=== PATIENT | female | born 2000 | race Caucasian/White ===

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

== ENCOUNTER 2018-04-25 17:53 | Emergency (ER) | payer OTHER, BC ==
[2018-04-25 19:20] LABS: BASO % 0.4 % (0.0-1.0); EOS # 0.1 10^3/uL (0.0-0.50); EOS % 1.3 % (0.0-3.0); HEMATOCRIT 39.7 % (36.0-47.0); HEMOGLOBIN 13.4 g/dl (12.0-15.5); IMMATURE GRANULOCYTE % 0.2 % (0-3.0); LYMPH # 2.6 10^3/uL (1.5-6.5); LYMPH % 28.6 % (24.0-44.0); MEAN CORPUSCULAR HEMOGLOBIN 30.4 pg (27.0-33.0); MEAN CORPUSCULAR HGB CONC 33.8 g/dl (32.0-36.5); MONO # 0.6 10^3/uL (0.0-0.8); MONO % 6.7 % (0.0-5.0); NEUTROPHILS # 5.6 10^3/uL (1.8-7.7); NEUTROPHILS % 62.8 % (36.0-66.0); PLATELET COUNT, AUTOMATED 272 10^3/uL (150-450); RED BLOOD COUNT 4.41 10^6/uL (4.00-5.40); RED CELL DISTRIBUTION WIDTH 12.1 % (11.5-14.5); WHITE BLOOD COUNT 8.9 10^3/uL (4.0-10.0)
[2018-04-25 19:35] LABS: ALBUMIN 4.6 GM/DL (3.2-5.2); ALBUMIN/GLOBULIN RATIO 1.28 (1.00-1.93); ALKALINE PHOSPHATASE 73 U/L (45-117); ALT/SGPT 19 U/L (12-78); ANION GAP 6 MEQ/L (8-16); AST/SGOT 14 U/L (7-37); BILIRUBIN,TOTAL 0.4 MG/DL (0.2-1.0); BLOOD UREA NITROGEN 14 MG/DL (7-18); CALCIUM LEVEL 9.5 MG/DL (8.5-10.1); CARBON DIOXIDE LEVEL 29 MEQ/L (21-32); CHLORIDE LEVEL 105 MEQ/L (98-107); CREATININE FOR GFR 0.74 MG/DL (0.55-1.30); GLUCOSE, FASTING 84 MG/DL (70-100); SODIUM LEVEL 140 MEQ/L (136-145); TOTAL PROTEIN 8.2 GM/DL (6.4-8.2)
[2018-04-25 20:37] LABS: HIVEXPOSED0 NEGATIVE (NEGATIVE)
[2018-04-25 20:39] LABS: CONTROL LINE INT CTR LINE PRESENT; HIV EXPOSED PT 1 NEGATIVE (NEGATIVE)
[2018-04-25 21:51] LABS: CONTROL LINE HCG INT CTR LINE PRESENT; HCG, SERUM QUALITATIVE NEGATIVE (NEGATIVE)
[2018-04-26 12:17] LABS: HEPATITIS B SURFACE ANTIGEN NEGATIVE (NEGATIVE)
[2018-04-26 12:46] LABS: HEPATITIS C VIRUS ABY INDEX 0.1 INDEX (<0.8)
[2018-04-26 13:17] LABS: HEPATITIS B SURFACE ANTIBODY NEGATIVE (POSITIVE)
== END 2018-04-25 20:15 | disposition home or self-care (01) ==
LOC: M ED 17:53
DX: Z77.21 Contact with and (suspected) exposure to potentially hazardous body fluids (principal); X58.XXXA Exposure to other specified factors, initial encounter; Y92.9 Unspecified place or not applicable; Y93.F9 Activity, other caregiving; Y99.0 Civilian activity done for income or pay; Z79.3 Long term (current) use of hormonal contraceptives; Z91.02 Food additives allergy status
CPT/HCPCS: 80053

== ENCOUNTER 2018-06-02 06:36 | Emergency (ER) | payer OTHER, BC ==
[2018-06-02] MEDS ORDERED: diphenhydrAMINE INJ 50MG/ML VIAL (J1200) As Ordered (06:42)
[2018-06-02] MEDS ORDERED: methylPREDNISolone INJ 125 MG/2 ML VIAL (J2930) As Ordered (06:43)
[2018-06-02] MEDS: diphenhydrAMINE INJ 50MG/ML VIAL (J1200) IV (06:58)
[2018-06-02] MEDS: methylPREDNISolone INJ 40 MG/1 ML VIAL (J2920) IV (07:06)
[2018-06-02] MEDS: FAMOTIDINE INJ 20MG/2ML VIAL (S0028) IVP (07:18)
== END 2018-06-02 08:35 | disposition home or self-care (01) ==
LOC: M ED 06:36
DX: R22.1 Localized swelling, mass and lump, neck (principal); R22.0 Localized swelling, mass and lump, head; T78.40XA Allergy, unspecified, initial encounter; Z91.02 Food additives allergy status
CPT/HCPCS: J1200

== ENCOUNTER 2018-07-05 09:27 | Emergency (ER) | payer OTHER ==
[2018-07-05 09:56] LABS: BASO % 0.6 % (0.0-1.0); EOS % 0.6 % (0.0-3.0); HEMATOCRIT 41.3 % (36.0-47.0); IMMATURE GRANULOCYTE % 0.1 % (0-3.0); LYMPH % 29.6 % (24.0-44.0); MEAN CORPUSCULAR HEMOGLOBIN 30.3 pg (27.0-33.0); MEAN CORPUSCULAR HGB CONC 33.9 g/dl (32.0-36.5); MEAN CORPUSCULAR VOLUME 89.4 fl (80.0-96.0); MONO # 0.6 10^3/uL (0.0-0.8); MONO % 8.4 % (0.0-5.0); NEUTROPHILS # 4.1 10^3/uL (1.8-7.7); NEUTROPHILS % 60.7 % (36.0-66.0); PLATELET COUNT, AUTOMATED 306 10^3/uL (150-450); RED BLOOD COUNT 4.62 10^6/uL (4.00-5.40); WHITE BLOOD COUNT 6.7 10^3/uL (4.0-10.0)
[2018-07-05 10:26] LABS: CONTROL LINE HCG INT CTR LINE PRESENT; HCG, SERUM QUALITATIVE NEGATIVE (NEGATIVE)
[2018-07-05 10:34] LABS: ALBUMIN 4.4 GM/DL (3.2-5.2); ALBUMIN/GLOBULIN RATIO 1.19 (1.00-1.93); ALKALINE PHOSPHATASE 62 U/L (45-117); ALT/SGPT 21 U/L (12-78); ANION GAP 9 MEQ/L (8-16); AST/SGOT 16 U/L (7-37); BILIRUBIN,TOTAL 0.5 MG/DL (0.2-1.0); BLOOD UREA NITROGEN 12 MG/DL (7-18); CALCIUM LEVEL 9.9 MG/DL (8.5-10.1); CARBON DIOXIDE LEVEL 26 MEQ/L (21-32); CHLORIDE LEVEL 105 MEQ/L (98-107); CREATININE FOR GFR 0.79 MG/DL (0.55-1.30); GLUCOSE, FASTING 86 MG/DL (70-100); POTASSIUM SERUM 3.7 MEQ/L (3.5-5.1); SODIUM LEVEL 140 MEQ/L (136-145); TOTAL PROTEIN 8.1 GM/DL (6.4-8.2)
[2018-07-05 10:47] LABS: HEPATITIS B SURFACE ANTIBODY POSITIVE (POSITIVE)
[2018-07-05 10:57] LABS: HEPATITIS B SURFACE ANTIGEN NEGATIVE (NEGATIVE)
[2018-07-05 11:26] LABS: HIV SCREEN CENTAUR EXPOSED NEGATIVE (NEGATIVE)
[2018-07-05 11:26] LABS: HEPATITIS C VIRUS ABY INDEX 0.1 INDEX (<0.8)
== END 2018-07-05 11:50 | disposition home or self-care (01) ==
LOC: M ED 09:27
DX: Z77.21 Contact with and (suspected) exposure to potentially hazardous body fluids (principal); W46.1XXA Contact with contaminated hypodermic needle, initial encounter; Y92.59 Other trade areas as the place of occurrence of the external cause; Y99.0 Civilian activity done for income or pay
CPT/HCPCS: 80053

== ENCOUNTER 2019-05-13 07:50 | Emergency (ER) | payer OTHER ==
[~2019-05-13] VITALS: Ht 167.6 cm; Wt 84.5 kg
[~2019-05-13 07:50] MED LIST changes: +BENA25CA4 PO; +NEXP1IMP SC; +PEPC1TAB5 PO; +PRED20TA PO; +TRINTAB; -TRINTAB3; +ZOFR4TAB14 PO
[2019-05-13] MEDS ORDERED: PREN1CHW PO (07:55)
[2019-05-13] MEDS ORDERED: ONDANSETRON 4 MG ORAL DISINTEGRATING TAB (Q0162 PER 1MG) PO ONE (08:15)
[2019-05-13 08:31] LABS: HEMATOCRIT 41.5 % (36.0-47.0); HEMOGLOBIN 14.1 g/dl (12.0-15.5); MEAN CORPUSCULAR HEMOGLOBIN 30.5 pg (27.0-33.0); MEAN CORPUSCULAR VOLUME 89.6 fl (80.0-96.0); PLATELET COUNT, AUTOMATED 271 10^3/uL (150-450); RED BLOOD COUNT 4.63 10^6/uL (4.00-5.40); WHITE BLOOD COUNT 7.1 10^3/uL (4.0-10.0)
[2019-05-13 08:51] LABS: BLOOD UREA NITROGEN 15 MG/DL (7-18); CALCIUM LEVEL 9.2 MG/DL (8.5-10.1); CARBON DIOXIDE LEVEL 24 MEQ/L (21-32); CHLORIDE LEVEL 107 MEQ/L (98-107); CREATININE FOR GFR 0.81 MG/DL (0.55-1.30); GLUCOSE, FASTING 103 MG/DL (70-100); POTASSIUM SERUM 4.2 MEQ/L (3.5-5.1); SODIUM LEVEL 138 MEQ/L (136-145)
[2019-05-13 10:19] VITALS: BP 113/60
--- NOTE | 2019-05-14 07:52 | REP ---
Pelvic ultrasound including transabdominal, endovaginal and Doppler ultrasound assessment for vaginal bleeding and for cramping: The uterus is anteverted and anteflexed and normal size measuring 7.6 by 2.7 x 3.9 cm. The endometrium is not thickened measuring 4.8 mm. The right ovary is normal size measuring 2.1 x 1.6 x 2.2 cm. There is no dominant right ovarian mass or cyst. The left ovary is normal size measuring 2.5 x 1.8 x 1.4 cm. There is a complex left ovarian follicle measuring 1.3 x 1.5 x 1.1 cm, likely hemorrhagic follicle. T There is vascular flow in both ovaries with the Doppler resistive index of the parenchymal arteries on the right measuring 0.53 and on the left 0.53. There is no pelvic free fluid. Impression: Left ovarian hemorrhagic follicle measuring up to 1.5 cm. No ovarian torsion. The uterus is anteverted and anteflexed. Electronically Signed by Arie Cervantes MD 05/13/2019 10:30 A
== END 2019-05-13 11:29 | disposition home or self-care (01) ==
LOC: M ED 07:50
DX: N83.02 Follicular cyst of left ovary (principal); N85.4 Malposition of uterus; N93.9 Abnormal uterine and vaginal bleeding, unspecified; Z91.048 Other nonmedicinal substance allergy status
CPT/HCPCS: 76830; 76856; 80048; 81001; 84702; 85027; 86850; 86900; 86901; 93976; 99284; Q0162

== ENCOUNTER 2019-05-17 22:42 | Emergency (ER) | payer OTHER ==
[~2019-05-17] VITALS: Ht 167.6 cm; Wt 87.1 kg
[2019-05-17 22:42] VITALS: BP 130/76
[~2019-05-17 22:42] MED LIST changes: +PREN1CHW PO
[2019-05-17] MEDS ORDERED: AUGMENTIN 875 MG TAB PO ONE (23:15)
[2019-05-17] MEDS ORDERED: AUGM875T28 PO (23:25)
== END 2019-05-18 00:13 | disposition home or self-care (01) ==
LOC: M ED 22:42
DX: S60.571A Other superficial bite of hand of right hand, initial encounter (principal); W55.01XA Bitten by cat, initial encounter; Y92.89 Other specified places as the place of occurrence of the external cause; E28.2 Polycystic ovarian syndrome; Z91.018 Allergy to other foods

== ENCOUNTER 2019-09-16 22:03 | Emergency (ER) | payer OTHER ==
[~2019-09-16] VITALS: Ht 167.6 cm; Wt 84.1 kg
[~2019-09-16 22:03] MED LIST changes: +AUGM875T28 PO
[2019-09-16 22:04] VITALS: BP 135/75
[2019-09-16] MEDS ORDERED: AMOX500T PO (22:25)
== END 2019-09-16 22:34 | disposition home or self-care (01) ==
LOC: M ED 22:03
DX: O99.89 Other specified diseases and conditions complicating pregnancy, childbirth and the puerperium (principal); J02.0 Streptococcal pharyngitis; Z3A.10 10 weeks gestation of pregnancy; Z79.899 Other long term (current) drug therapy; Z91.89 Other specified personal risk factors, not elsewhere classified

== ENCOUNTER → 2019-09-21 | Outpatient (CLI) | payer OTHER ==
[~2019-09-21] MED LIST changes: +AMOX500T PO
[2019-09-21 15:18] LABS: BASO % 0.4 % (0.0-1.0); EOS # 0.1 10^3/uL (0.0-0.5); EOS % 0.6 % (0.0-3.0); HEMATOCRIT 39.1 % (36.0-47.0); HEMOGLOBIN 12.9 g/dl (12.0-15.5); LYMPH # 2.2 10^3/uL (1.5-5.0); LYMPH % 22.9 % (24.0-44.0); MEAN CORPUSCULAR HEMOGLOBIN 30.2 pg (27.0-33.0); MEAN CORPUSCULAR VOLUME 91.6 fl (80.0-96.0); MONO # 0.9 10^3/uL (0.0-0.8); MONO % 9.1 % (0.0-5.0); NEUTROPHILS # 6.4 10^3/uL (1.5-8.5); NEUTROPHILS % 66.4 % (36.0-66.0); PLATELET COUNT, AUTOMATED 277 10^3/uL (150-450); RED BLOOD COUNT 4.27 10^6/uL (4.00-5.40); WHITE BLOOD COUNT 9.6 10^3/uL (4.0-10.0)
[2019-09-21 16:49] LABS: CHLAMYDIA DNA AMPLIFICATION NEGATIVE (NEGATIVE); GC DNA AMPLIFICATION NEGATIVE (NEGATIVE)
[2019-09-21 21:44] LABS: HIV 1&2 SCREEN CENTAUR NEGATIVE (NEGATIVE); RUBELLA IgG QUALITATIVE IMMUNE (IMMUNE)
[2019-09-24 13:09] LABS: HEPATITIS C VIRUS ABY INDEX 0.1 INDEX (<0.8)
== END ==
LOC: M PLALAB 09:15
PROVIDERS: ATTEND Obstetrics & Gynecology
DX: Z34.81 Encounter for supervision of other normal pregnancy, first trimester (principal); Z36.89 Encounter for other specified antenatal screening

== ENCOUNTER → 2019-11-13 | Outpatient (CLI) | payer OTHER ==
--- NOTE | 2019-11-15 02:12 | REP ---
Clinical: Anatomical evaluation. Comparison: None . Findings: Examination demonstrates a single live intrauterine in cephalic presentation. motion is identified by technologist. Placenta is noted anterior and grade I without evidence for placenta previa or abruption. Amniotic fluid volume is normal. Cervix measures 3.1 cm in length and appears closed. No evidence for nuchal cord. 1.9 cm maternal left ovarian / para ovarian cyst noted. Gestational age by current measurements 18 weeks 3 days with STACEY 04/12/2020 . FHR equals 155 beats per minute. BPD 4.2 cm 18 weeks 5 days HC 15.2 cm 18 weeks 2 days AC 12.4 cm 18 weeks 0 days FL 2.9 cm 18 weeks 6 days HL 2.7 cm 18 weeks 4 days HC/AC ratio 1.23 Estimated weight 240 grams ( 48th percentile). Anatomical assessment demonstrates normal structures including cranium, choroid plexus, lungs, four-chamber heart/ left ventricular outflow tract, diaphragm, stomach, cord insertion/three-vessel cord, kidneys/bladder, spine, and extremities. Limited evaluation of the cavum, posterior fossa, facial features, and right cardiac ventricular outflow tract noted. Impression: 1. Single live intrauterine in cephalic presentation demonstrating appropriate estimated weight. 2. Anatomical limitations as noted above may warrant followup. No gross abnormality identified. 3. 1.9 cm maternal left ovarian cyst.
== END ==
LOC: M WHC 08:01
PROVIDERS: ATTEND Obstetrics & Gynecology
DX: Z34.82 Encounter for supervision of other normal pregnancy, second trimester (principal); Z36.89 Encounter for other specified antenatal screening; Z3A.18 18 weeks gestation of pregnancy

== ENCOUNTER → 2019-11-16 | Outpatient (REF) | payer OTHER ==
[2019-11-16 14:42] LABS: AMORPHOUS SEDIMENT LARGE (NEGATIVE); APPEARANCE, URINE TURBID (CLEAR); BACTERIA, URINE AUTO NEGATIVE (NEGATIVE); BILIRUBIN, URINE AUTO NEGATIVE (NEGATIVE); BLOOD, URINE BLOOD NEGATIVE (NEGATIVE); COLOR, URINE YELLOW (YELLOW); GLUCOSE, URINE (UA) AUTO 1+ mg/dL (NEGATIVE); KETONE, URINE AUTO TRACE mg/dL (NEGATIVE); LEUKOCYTE ESTERASE, URINE AUTO NEGATIVE (NEGATIVE); NITRITE, URINE AUTO NEGATIVE (NEGATIVE); PROTEIN, URINE AUTO NEGATIVE (NEGATIVE); RBC, URINE AUTO 2 /HPF (0-3); SPECIFIC GRAVITY URINE AUTO 1.027 (1.002-1.035); SQUAMOUS EPITHELIAL CELL UR AU 2 /HPF (0-6); UROBILINOGEN, URINE AUTO 0.2 mg/dL (0.0-2.0); WBC, URINE AUTO 5 /HPF (0-3)
== END ==
LOC: M LAB REF 13:01
PROVIDERS: ATTEND Advanced Practice Midwife
DX: Z34.02 Encounter for supervision of normal first pregnancy, second trimester (principal)

== ENCOUNTER → 2019-11-29 | Outpatient (CLI) | payer OTHER ==
--- NOTE | 2019-11-29 12:07 | REP ---
Clinical: Anatomical evaluation. Comparison: 11/13/2019 . Findings: Examination demonstrates a single live intrauterine in cephalic presentation. motion is identified by technologist. Placenta is noted anterior and grade zero without evidence for placenta previa or abruption. Amniotic fluid volume is normal. Cervix measures 3.8 cm in length and appears closed. No evidence for nuchal cord. Gestational age by LMP 20 weeks 5 days with STACEY 04/12/2020 . Gestational age by current measurements 20 weeks 1 day with STACEY 04/17/2020 . FHR equals 142 beats per minute. Estimated weight 338 grams ( 31st percentile). Anatomical assessment demonstrates normal structures including cavum, cerebellum/posterior fossa, right cardiac ventricular outflow tract. Impression: Single live intrauterine in cephalic presentation demonstrating appropriate interval growth. Continued limited evaluation of the facial features due to motion / positioning. Cavum, posterior fossa and right cardiac ventricular outflow tract are identified and normal.
== END ==
LOC: M WHC 10:33
PROVIDERS: ATTEND Advanced Practice Midwife
DX: Z34.02 Encounter for supervision of normal first pregnancy, second trimester (principal); Z36.2 Encounter for other antenatal screening follow-up; Z3A.20 20 weeks gestation of pregnancy

== ENCOUNTER 2019-12-21 18:04 | Outpatient (CLI) | payer OTHER ==
[~2019-12-21] VITALS: Ht 167.6 cm; Wt 92.0 kg
[2019-12-21 18:22] VITALS: BP 115/66
[2019-12-21 19:08] LABS: APPEARANCE, URINE CLEAR (CLEAR); BACTERIA, URINE AUTO NEGATIVE (NEGATIVE); BILIRUBIN, URINE AUTO NEGATIVE (NEGATIVE); BLOOD, URINE BLOOD NEGATIVE (NEGATIVE); COLOR, URINE STRAW (YELLOW); GLUCOSE, URINE (UA) AUTO NEGATIVE (NEGATIVE); KETONE, URINE AUTO NEGATIVE (NEGATIVE); LEUKOCYTE ESTERASE, URINE AUTO NEGATIVE (NEGATIVE); NITRITE, URINE AUTO NEGATIVE (NEGATIVE); PROTEIN, URINE AUTO NEGATIVE (NEGATIVE); RBC, URINE AUTO 0 /HPF (0-3); SPECIFIC GRAVITY URINE AUTO 1.004 (1.002-1.035); SQUAMOUS EPITHELIAL CELL UR AU 0 /HPF (0-6); UROBILINOGEN, URINE AUTO 0.2 mg/dL (0.0-2.0); WBC, URINE AUTO 1 /HPF (0-3)
--- NOTE | 2019-12-21 19:14 | IPNPDOC ---
Text Note Date of Service The patient was seen on 12/21/19. NOTE Triage Subjective: Patient is a 19-year-old, who presents to labor and delivery c/o low abdominal fullness and intermittent shooting pains to pelvis since this morning. Reports increased vaginal discharge. Reports positive movement. Denies vaginal bleeding. Reports [place] ribeiro contractions. Objective: Alert and oriented x3. Abdomen soft and non-tender to palpation. Bladder tender to palpation, urine collected and sent. Cervix long/thick/closed, normal white discharge noted per sterile speculum exam. FFN collected. PH 4.5, wet prep negative for overgrowth of yeast, no clue cells. Negative whiff test. GC/chlamydia/trich collected. FHR 148 per doppler. No contractions noted on tocometer. TVUS showed cervical length of 4.5cm without funneling of inner os. Assessment: SIUP @ 23.5wk gestation. [place] ribeiro contractions. Plan: Urinalysis attached, culture pending. FFN positive. GC/Chlamydia/trich negative. Discharged to home. Encouraged less acidic foods. Reviewed normal changes. Reviewed access to care, movement patterns, danger signs. Keep next OB appointment on January 15. Dr. Rea aware of patient status and agrees with plan. VS,Tobiasbone, I+O VS, Tobiasbone, I+O Vital Signs Date Time Temp Pulse Resp B/P (MAP) Pulse Ox O2 Delivery O2 Flow Rate FiO2 12/21/19 18:22 97.0 75 16 115/66 (82) Item Value Date Time Urine Color STRAW 12/21/191858 Urine Appearance CLEAR 12/21/191858 Urine pH 6.0 UNITS 12/21/191858 Urine Specific [place] 1.004 12/21/191858 Urine Protein NEGATIVE mg/dL 12/21/191858 Urine Glucose (Auto)(UA) NEGATIVE mg/dL 12/21/191858 Urine Ketones (Auto) NEGATIVE mg/dL 12/21/191858 Urine Blood NEGATIVE 12/21/191858 Urine Nitrite NEGATIVE 12/21/191858 Urine Bilirubin NEGATIVE 12/21/191858 Urine Urobilinogen 0.2 mg/dL 12/21/191858 Urine Leukocyte Esterase (Auto) NEGATIVE 12/21/191858 Urine WBC (Auto) 1 /HPF 12/21/191858 Urine RBC (Auto) 0 /HPF 12/21/191858 Urine Hyaline Casts (Auto) 0 /LPF 12/21/191858 Urine Bacteria (Auto) NEGATIVE 12/21/191858 Urine Squamous Epithelial Cells 0 /HPF 12/21/191858 Item Value Date Time Chlamydia trachomatis DNA (ARIE) NEGATIVE 12/21/191899 Neisseria gonorrhoeae DNA (ARIE) NEGATIVE 12/21/191899 Trichomonas vaginalis (PCR) NOT DETECTED 12/21/191899 Jennifer Ernandez Dec 21, 2019 19:14
[2019-12-21 21:29] LABS: CHLAMYDIA DNA AMPLIFICATION NEGATIVE (NEGATIVE); GC DNA AMPLIFICATION NEGATIVE (NEGATIVE)
--- NOTE | 2019-12-21 21:55 | REPVR ---
PROCEDURE INFORMATION: Exam: US , Limited Exam date and time: 12/21/2019 8:59 PM Age: 19 years old Clinical indication: Other: Lower pelvic pain, +ffn; Gestational age or lmp: 24w 0d; ; Additional info: + ffn, cervical length TECHNIQUE: Imaging protocol: Real-time ultrasound of the maternal uterus with image documentation. Exam focused on the clinical indication. COMPARISON: US OBS FOLLOW UP OR REPEAT 11/29/2019 10:41 AM FINDINGS: GESTATION: Gestation: Single intrauterine fetus. The stomach and bladder are normal. Heart rate: heartbeat of 133 bpm. Presentation: Breech presentation. Placenta: Anterior placenta. MATERNAL: Cervix: Closed cervix measuring 4.5 cm transvaginally. No beaking of the internal os. IMPRESSION: 1. Single live intrauterine fetus in breech presentation. 2. Closed cervix measuring 4.5 cm transvaginally with no beaking of the internal os. Electronically signed by: Mnig Jha On 12/21/2019 21:55:12 PM
== END 2019-12-21 21:35 | disposition home or self-care (01) ==
LOC: M LDO 18:04
PROVIDERS: ATTEND Advanced Practice Midwife
DX: O26.892 Other specified pregnancy related conditions, second trimester (principal); R10.2 Pelvic and perineal pain; N89.8 Other specified noninflammatory disorders of vagina; O47.02 False labor before 37 completed weeks of gestation, second trimester; Z3A.23 23 weeks gestation of pregnancy
CPT/HCPCS: 76815; 76817; 81001; 82731; 87086; 87661; G0378; G0463

== ENCOUNTER 2019-12-27 20:27 | Outpatient (CLI) | payer OTHER ==
[~2019-12-27] VITALS: Ht 167.6 cm; Wt 93.7 kg
[2019-12-27 20:50] VITALS: BP 103/56
[2019-12-27] MEDS ORDERED: LACTATED RINGER'S 1000 ML IV STA (21:05)
[2019-12-27] MEDS ORDERED: ONDANSETRON 4MG/2ML VIAL (J2405) IV ONE (21:15)
[2019-12-27 21:47] LABS: HEMATOCRIT 35.7 % (36.0-47.0); MEAN CORPUSCULAR HEMOGLOBIN 30.5 pg (27.0-33.0); MEAN CORPUSCULAR HGB CONC 33.6 g/dl (32.0-36.5); MEAN CORPUSCULAR VOLUME 90.8 fl (80.0-96.0); PLATELET COUNT, AUTOMATED 221 10^3/uL (150-450); RED BLOOD COUNT 3.93 10^6/uL (4.00-5.40); WHITE BLOOD COUNT 10.1 10^3/uL (4.0-10.0)
[2019-12-27 21:55] LABS: APPEARANCE, URINE CLOUDY (CLEAR); COLOR, URINE YELLOW (YELLOW); PROTEIN, URINE AUTO NEGATIVE (NEGATIVE); SPECIFIC GRAVITY URINE AUTO 1.014 (1.002-1.035)
[2019-12-27 21:56] LABS: BACTERIA, URINE AUTO NEG (NEGATIVE); BILIRUBIN, URINE AUTO NEGATIVE (NEGATIVE); BLOOD, URINE BLOOD NEGATIVE (NEGATIVE); GLUCOSE, URINE (UA) AUTO NEGATIVE (NEGATIVE); KETONE, URINE AUTO NEGATIVE (NEGATIVE); LEUKOCYTE ESTERASE, URINE AUTO NEGATIVE (NEGATIVE); MUCUS, URINE SMALL (NEGATIVE); NITRITE, URINE AUTO NEGATIVE (NEGATIVE); RBC, URINE AUTO 0 /HPF (0-3); UROBILINOGEN, URINE AUTO 0.2 mg/dL (0.0-2.0); WBC, URINE AUTO 0 /HPF (0-3)
[2019-12-27 21:57] LABS: AMORPHOUS SEDIMENT SMALL (NEGATIVE)
[2019-12-27 22:10] LABS: ALBUMIN 2.9 GM/DL (3.2-5.2); ALT/SGPT 16 U/L (12-78); AMYLASE 32 U/L (25-115); BILIRUBIN,TOTAL 0.2 MG/DL (0.2-1.0); BLOOD UREA NITROGEN 8 MG/DL (7-18); CALCIUM LEVEL 8.7 MG/DL (8.5-10.1); CARBON DIOXIDE LEVEL 27 MEQ/L (21-32); CHLORIDE LEVEL 104 MEQ/L (98-107); CREATININE FOR GFR 0.63 MG/DL (0.55-1.30); GLOMERULAR FILTRATION RATE > 60.0 (>60); GLUCOSE, FASTING 83 MG/DL (70-100); LIPASE 90 U/L (73-393); POTASSIUM SERUM 3.5 MEQ/L (3.5-5.1); SODIUM LEVEL 138 MEQ/L (136-145); TOTAL PROTEIN 6.4 GM/DL (6.4-8.2)
== END 2019-12-27 23:00 | disposition home or self-care (01) ==
LOC: M LDO 20:27
PROVIDERS: ATTEND Obstetrics & Gynecology
DX: O28.1 Abnormal biochemical finding on antenatal screening of mother (principal); A08.4 Viral intestinal infection, unspecified; Z3A.24 24 weeks gestation of pregnancy; O99.612 Diseases of the digestive system complicating pregnancy, second trimester; K52.9 Noninfective gastroenteritis and colitis, unspecified; Z91.048 Other nonmedicinal substance allergy status
CPT/HCPCS: 80053; 81001; 82150; 83690; 85027; 87086; 96374; G0378; G0463; J2405

== ENCOUNTER 2019-12-30 14:11 | Outpatient (CLI) | payer OTHER ==
[~2019-12-30] VITALS: Ht 167.6 cm; Wt 92.5 kg
[2019-12-30 14:35] VITALS: BP 109/53
[2019-12-30 15:56] VITALS: BP 100/54
[2019-12-30 16:13] LABS: HEMATOCRIT 35.8 % (36.0-47.0); HEMOGLOBIN 11.9 g/dl (12.0-15.5); MEAN CORPUSCULAR HEMOGLOBIN 30.7 pg (27.0-33.0); MEAN CORPUSCULAR HGB CONC 33.2 g/dl (32.0-36.5); MEAN CORPUSCULAR VOLUME 92.3 fl (80.0-96.0); PLATELET COUNT, AUTOMATED 224 10^3/uL (150-450); RED BLOOD COUNT 3.88 10^6/uL (4.00-5.40); WHITE BLOOD COUNT 9.4 10^3/uL (4.0-10.0)
[2019-12-30 16:39] VITALS: BP 104/54
[2019-12-30 18:37] VITALS: BP 129/69
--- NOTE | 2019-12-31 08:34 | REP ---
REASON FOR EXAM: Evaluate placenta. Multiple ultrasonographic images of the gravid uterus shows a single living intrauterine gestation in the cephalic presentation. Doppler interrogation of the heart shows a heart rate of 153 beats per minute. The placenta is anterior and not low lying. The subjective amniotic fluid volume is within normal limits. The cervix measures 2.8 cm in length and is closed. Evaluation of the maternal adnexal spaces shows no abnormalities. BPD 6.2 cm = 25 weeks 1 days HC 23.2 cm = 25 weeks 1 day AC 19.7 cm = 24 weeks 3 days FL 4.6 cm = 25 weeks 3 days The estimated weight is 747 grams which is at the 32nd percentile for a 25 week 2 day gestational age. IMPRESSION: Limited OB ultrasound as described above particularly performed for placental assessment. Electronically Signed by Deni Clay DO 12/31/2019 01:31 P
== END 2019-12-30 18:50 | disposition home or self-care (01) ==
LOC: M LDO 14:11
PROVIDERS: ATTEND Obstetrics & Gynecology
DX: Z36.89 Encounter for other specified antenatal screening (principal); Z3A.25 25 weeks gestation of pregnancy
CPT/HCPCS: 76816; 85027; 85384; 85460; G0378; G0463

== ENCOUNTER → 2020-01-16 | Outpatient (CLI) | payer OTHER ==
[2020-01-16 13:40] LABS: HEMATOCRIT 34.9 % (36.0-47.0); HEMOGLOBIN 11.7 g/dl (12.0-15.5); MEAN CORPUSCULAR HGB CONC 33.5 g/dl (32.0-36.5); MEAN CORPUSCULAR VOLUME 92.6 fl (80.0-96.0); PLATELET COUNT, AUTOMATED 247 10^3/uL (150-450); RED BLOOD COUNT 3.77 10^6/uL (4.00-5.40); WHITE BLOOD COUNT 10.8 10^3/uL (4.0-10.0)
== END ==
LOC: M LAB 12:17
PROVIDERS: ATTEND Advanced Practice Midwife
DX: Z34.02 Encounter for supervision of normal first pregnancy, second trimester (principal); Z36.89 Encounter for other specified antenatal screening

== ENCOUNTER → 2020-01-21 | Outpatient (CLI) | payer OTHER | LOC: M LAB 07:09 | PROVIDERS: ATTEND Advanced Practice Midwife | DX: O99.810 Abnormal glucose complicating pregnancy (principal); Z3A.00 Weeks of gestation of pregnancy not specified ==

== ENCOUNTER → 2020-01-24 | Outpatient (CLI) | payer OTHER ==
--- NOTE | 2020-01-24 11:16 | REP ---
OB ULTRASOUND: Real-time sonographic evaluation of the gravid uterus performed. There is a single living intrauterine gestation. The estimated gestational age is 28 weeks 5 days based on prior ultrasound with EDC 04/12/2020. Today's measurements indicate appropriate growth. Biometry and Growth: BPD 71 mm = 28 weeks 5 days, 50th percentile HC 264 mm = 28 weeks 5 days, 51st percentile AC 240 mm = 28 weeks 2 days, 42nd percentile FL 54 mm = 28 weeks 3 days, 45th percentile HC/AC ratio 1.10 within normal range of 0.9 to 1.18. Estimated weight 1223 grams 36th percentile. Visualized facial structures today are grossly unremarkable including lateral profile view and axial view of the nose and lips. Cervical length: Closed and measures 3.1 cm in length. heart rate: 138 beats per minute. position: Vertex. Placenta: Anterior and grade 1 with no previa or abruption. Amniotic fluid: Within normal limits, LINSEY 17.8 with normal range 9.3 to 23.0.
== END ==
LOC: M WHC 10:02
PROVIDERS: ATTEND Advanced Practice Midwife
DX: Z34.02 Encounter for supervision of normal first pregnancy, second trimester (principal); Z3A.28 28 weeks gestation of pregnancy

== ENCOUNTER 2020-02-29 10:04 | Emergency (ER) | payer OTHER ==
[~2020-02-29] VITALS: Ht 167.6 cm; Wt 99.2 kg
[2020-02-29] MEDS ORDERED: LORA-674 PO (10:09)
[2020-02-29] MEDS ORDERED: ALBUTEROL 90 MCG/ACT 8GM HFA INHALER INH ONE (10:45)
[2020-02-29 10:57] LABS: BASO % 0.2 % (0.0-1.0); EOS % 0.1 % (0.0-3.0); HEMATOCRIT 37.6 % (36.0-47.0); HEMOGLOBIN 12.9 g/dl (12.0-15.5); LYMPH # 1.5 10^3/uL (1.5-5.0); LYMPH % 7.8 % (24.0-44.0); MEAN CORPUSCULAR HGB CONC 34.3 g/dl (32.0-36.5); MEAN CORPUSCULAR VOLUME 90.4 fl (80.0-96.0); MONO # 1.1 10^3/uL (0.0-0.8); MONO % 5.9 % (0.0-5.0); NEUTROPHILS # 16.4 10^3/uL (1.5-8.5); NEUTROPHILS % 85.5 % (36.0-66.0); PLATELET COUNT, AUTOMATED 238 10^3/uL (150-450); RED BLOOD COUNT 4.16 10^6/uL (4.00-5.40); WHITE BLOOD COUNT 19.1 10^3/uL (4.0-10.0)
[2020-02-29 11:26] LABS: ALT/SGPT 16 U/L (12-78); BILIRUBIN,TOTAL 0.5 MG/DL (0.2-1.0); BLOOD UREA NITROGEN 11 MG/DL (7-18); CARBON DIOXIDE LEVEL 23 MEQ/L (21-32); CHLORIDE LEVEL 105 MEQ/L (98-107); CREATININE FOR GFR 0.58 MG/DL (0.55-1.30); GLOMERULAR FILTRATION RATE > 60.0 (>60); GLUCOSE, FASTING 98 MG/DL (70-100); POTASSIUM SERUM 4.1 MEQ/L (3.5-5.1); SODIUM LEVEL 136 MEQ/L (136-145); TOTAL PROTEIN 6.9 GM/DL (6.4-8.2)
[2020-02-29 11:45] VITALS: O2SAT 98
[2020-02-29] MEDS ORDERED: PROAAER10 INH (11:56)
--- NOTE | 2020-02-29 11:59 | REP ---
CHEST: Single view. There is no evidence of acute infiltrate. No pleural effusion is seen. The heart is normal in size. The mediastinal silhouette is unremarkable. The visualized osseous structures are intact. IMPRESSION: No acute pulmonary disease. Electronically Signed by Arie Buckley MD 02/29/2020 12:03 P
[2020-02-29 12:46] VITALS: BP 122/70
--- NOTE | 2020-02-29 21:05 | ECGEPIP ---
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
== END 2020-02-29 13:01 | disposition home or self-care (01) ==
LOC: M ED 10:04
DX: O99.513 Diseases of the respiratory system complicating pregnancy, third trimester (principal); R06.00 Dyspnea, unspecified; O24.419 Gestational diabetes mellitus in pregnancy, unspecified control; Z91.018 Allergy to other foods; Z3A.34 34 weeks gestation of pregnancy

== ENCOUNTER → 2020-03-14 | Outpatient (REF) | payer OTHER ==
[~2020-03-14] MED LIST changes: +LORA-674 PO; +PROAAER10 INH
== END ==
LOC: M SFHCWAGY 16:53
PROVIDERS: ATTEND Advanced Practice Midwife
DX: O24.410 Gestational diabetes mellitus in pregnancy, diet controlled (principal); Z36.85 Encounter for antenatal screening for Streptococcus B

== ENCOUNTER → 2020-03-24 | Outpatient (REF) | payer OTHER | LOC: M PLALAB 15:30 | PROVIDERS: ATTEND Advanced Practice Midwife | DX: O24.410 Gestational diabetes mellitus in pregnancy, diet controlled (principal) ==

== ENCOUNTER → 2020-04-04 | Outpatient (REF) | payer OTHER ==
[~2020-04-04] MED LIST changes: +PEPC40TA12 PO
[2020-04-04 16:56] LABS: HEMATOCRIT 35.2 % (36.0-47.0); HEMOGLOBIN 11.8 g/dl (12.0-15.5); MEAN CORPUSCULAR HEMOGLOBIN 30.7 pg (27.0-33.0); MEAN CORPUSCULAR HGB CONC 33.5 g/dl (32.0-36.5); MEAN CORPUSCULAR VOLUME 91.7 fl (80.0-96.0); PLATELET COUNT, AUTOMATED 220 10^3/uL (150-450); RED BLOOD COUNT 3.84 10^6/uL (4.00-5.40); WHITE BLOOD COUNT 14.9 10^3/uL (4.0-10.0)
[2020-04-04 17:00] LABS: ALT/SGPT 19 U/L (12-78); BILIRUBIN,TOTAL 0.2 MG/DL (0.2-1.0); CREATININE FOR GFR 0.61 MG/DL (0.55-1.30); GLOMERULAR FILTRATION RATE > 60.0 (>60); LDH LACTATE DEHYDROGENASE 113 U/L (84-246); URIC ACID 5.2 MG/DL (2.6-6.0)
[2020-04-04 17:29] LABS: CREATININE,RANDOM URINE 28.4 MG/DL; TOTAL PROTEIN,RANDOM URINE 14.6 MG/DL (0.0-12.0)
== END ==
LOC: M PLALAB 15:11
PROVIDERS: ATTEND Advanced Practice Midwife
DX: O13.3 Gestational [pregnancy-induced] hypertension without significant proteinuria, third trimester (principal); Z3A.00 Weeks of gestation of pregnancy not specified
CPT/HCPCS: 36415; 82247; 82565; 82570; 83615; 84156; 84450; 84460; 84550; 85027; G0463

== ENCOUNTER 2020-04-07 10:17 | Inpatient (IN) | payer OTHER ==
[~2020-04-07] VITALS: Ht 167.6 cm; Wt 107.6 kg
[2020-04-07] VITALS (13 sets, daily range): BP systolic 99–135; BP diastolic 55–85
[~2020-04-07 10:17] MED LIST changes: -PEPC40TA12 PO
[2020-04-07] MEDS ORDERED: PEPC40TA12 PO (10:53)
[2020-04-07] MEDS: miSOPROStol 50MCG 1/2 TABLET PO SCH ×2 (11:15→15:22)
[2020-04-07 11:27] LABS: HEMATOCRIT 35.2 % (36.0-47.0); MEAN CORPUSCULAR HEMOGLOBIN 30.5 pg (27.0-33.0); MEAN CORPUSCULAR HGB CONC 34.1 g/dl (32.0-36.5); MEAN CORPUSCULAR VOLUME 89.6 fl (80.0-96.0); PLATELET COUNT, AUTOMATED 217 10^3/uL (150-450); RED BLOOD COUNT 3.93 10^6/uL (4.00-5.40); WHITE BLOOD COUNT 12.7 10^3/uL (4.0-10.0)
[2020-04-07 12:04] LABS: ALT/SGPT 22 U/L (12-78); BILIRUBIN,TOTAL 0.2 MG/DL (0.2-1.0); GLOMERULAR FILTRATION RATE > 60.0 (>60); LDH LACTATE DEHYDROGENASE 120 U/L (84-246); URIC ACID 6.2 MG/DL (2.6-6.0)
--- NOTE | 2020-04-07 12:07 | HPEPDOC ---
Obstetrical History & Physical General Date of Admission Apr 07, 2020 at 10:17 Primary Care Physician: DOMINGO HUERTA CNM History of Present Illness Patient is a 19-year-old female who is a at 39.1 weeks gestation with an STACEY of 04/13/20 based off of her LMP and consistent with her first trimester ultr asound. She initiated care in her first trimester with WW. Her has been complicated by gestational diabetes, which has been controlled with diet and preeclampsia. She presents to L&D for an IOL due to preeclampsia. She denies any preeclamptic symptoms. She reports active movement. She denies leaking of fluid, vaginal bleeding or regular contractions. 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 Surgical History: Denies/None Family History Significant Family History: Cancer (breast cancer), Diabetes, Heart disease, Renal disease, Other (brain aneurysm) Social History Marital Status: Family situation: Spouse/partner home Psychosocial History: No pertinent psych hx * Smoker: non-smoker Alcohol: Denies Drugs: denies Abuse Violence Screening Have you been hit/kicked/slapp: No Have you been sexually assault: No Allergies Coded Allergies: DYE'S (COLOR'S NOT IODINATED) (Verified Allergy, Severe, REY DYE ANAPHYLAXIS, 05/02/17) orange (food color) (Verified Allergy, Severe, ANAPHYLAXIS, 12/30/19) red dye (Verified Allergy, Severe, 12/30/19) ANAPHYLASIX Medications Scheduled Famotidine (Pepcid) 40 Mg Tablet, 1 TAB PO DAILY Loratadine (Loratadine) 10 Mg Tablet, PO DAILY Comb No.42/Folic Acid (Prena1 Chew Tablet) 1.4 Mg Tab.ch.bph, 1 TAB PO DAILY Physical Examination Physical Examination GENERAL: Alert and oriented times three. BREAST: . ABDOMEN: Gravid and non-tender to touch. FETUS: Is vertex (VTX) by sterile vaginal examination (SVE), fetus is vertex (VTX) by Waldemar. HEART RATE: Regular rate and rhythm. LUNGS: Clear to auscultation (CTA). EXTREMITIES: 1+ pitting edema to feet. No clonus. Deep tendon reflexes (DTRs) + 2. Vital Signs/I&O Vital Signs Date Time Temp Pulse Resp B/P (MAP) Pulse Ox O2 Delivery O2 Flow Rate FiO2 04/07/20 11:15 83 18 126/83 (97) 04/07/20 10:31 98.1 Laboratory Data 24H LABS Laboratory Tests 2 04/07/20 10:32: Serology Scanned Report Hepatitis B Testing 04/07/20 11:07: Nucleated Red Blood Cells % (auto) 0.0 CBC/BMP Laboratory Tests 04/07/20 11:07 Urine Culture: No Growth Pertinent Laboratoy Data Blood Type: A+ RBC Antibody Screen: Negative HIV: Negative Hepatitis B: Negative Hepatitis C: Negative Rapid Plasma Reagin: Nonreactive Rubella: Immune Chlamydia/Gonorrhea: Negative Group B Streptococcus: Negative Glucose Tolerance Test: 154 Vaginal Examination Dilation: 1cm Effacement: 80% Station: -2 Cervical Consistency: Medium Cervical Position: Anterior Presentation: Cephalic presentation Position: Vertex (occiput) Assessment Heart Rate (FHR): 130 Variability: Moderate Accelerations: Positive Decelerations: None Tocometer Contractions: Yes Frequency: irregular Multi-drug resistant Organism: No history of MDRO Assessment/Plan Assessment IUP at 39.1 weeks gestation A1GDM Preeclampsia Category I FHR tracing GBS negative Plan Plan of care collaborated with Dr. Dominguez. Admit to L&D. OOB ad rylie. Diet: regular now then switch to clears when IV Pitocin is started. Group B Streptococcus (GBS) negative. Labs along with preeclamptic labs and intravenous (IV) per unit protocol. Counseled on Cytotec, peralta bulb, and IV Pitocin for induction of labor. Cytotec ordered to start induction. Anesthesia consult per patient's request. Lactated Ringers (LR): Bolus 500 mL prior to epidural then at 125 mL/hr. Anticipate cervical ripening. C-S as appropriate. DOMINGO HUERTA CNM Apr 07, 2020 12:07
[2020-04-07] MEDS: LR 1,000 ML IV SCH (19:35)
--- NOTE | 2020-04-07 19:35 | IPNPDOC ---
Obstetrical Progress Note Date of Service Apr 07, 2020 Subjective Patient reports she is feeling her contractions. Objective Vital Signs Date Time Temp Pulse Resp B/P (MAP) Pulse Ox O2 Delivery O2 Flow Rate FiO2 04/07/20 18:49 77 18 125/74 (91) 04/07/20 17:26 98.0 Assessment Heart Rate (FHR): 140 Variability: Moderate Accelerations: Positive Decelerations: None Heart Rate Tracing: Category I Tocometer Contractions: Yes Frequency: regular Strength: palpated as mild Sterile Vaginal Examination Dilation: 1cm Effacement (%): 90% Station: -2 Cervical Consistency: Soft Cervical Position: Anterior Postion/Presentation: Cephalic presentation Assessment and Plan Age: 19 : 1 Term: 0 Pre-term: 0 Abortions: 0 Livin EGA at Admission: 39.1 Status: Reassuring Group B Streptococcus: Negative Anticipate: Vaginal Delivery Additional Comments Peralta bulb inserted with 60 cc of NS. Patient tolerated well. IV Pitocin ordered and to be started per order. Will continue with low dose IV Pitocin until peralta bulb falls out. DOMINGO HUERTA CNM Apr 07, 2020 19:35
[2020-04-07] MEDS ORDERED: LACTATED RINGER'S 1000 ML IV ONE (19:45)
[2020-04-07] MEDS ORDERED: OXYTOCIN DRIP 30 UNITS in IV 1 EA IV SCH (19:45)
[2020-04-07] MEDS ORDERED: ONDANSETRON 4MG/2ML VIAL IV PRN (20:15)
[2020-04-07] MEDS ORDERED: BUTORPHANOL 2 MG/ML INJ (J0595) IV ONE (20:30)
[2020-04-07] MEDS ORDERED: PROMETHAZINE INJ 25 MG/ML VIAL (J2550) IV ONE (20:30)
[2020-04-08] VITALS (25 sets, daily range): BP systolic 107–159; BP diastolic 55–92
[2020-04-08] MEDS ORDERED: FENTANYL 2MCG/ML ROPIVACAINE 0.2% IN 0.9% NACL 100ML IVBAG As Ordered ONE (02:08)
[2020-04-08] MEDS ORDERED: FENTANYL/ROPIVACAINE/NACL BAG 100 ML EPIDURAL SCH (02:56)
[2020-04-08] MEDS ORDERED: REFRIGERATOR IV KEYS XX PRN (02:56)
[2020-04-08] MEDS ORDERED: ePHEDrine SULFATE 25 MG/5 ML(5MG/ML) SYRINGE IV PRN (02:56)
[2020-04-08] MEDS ORDERED: diphenhydrAMINE 50MG/ML VIAL (J1200) IV PRN (02:56)
[2020-04-08] MEDS ORDERED: NALOXONE INJ 0.4MG/1ML VIAL (J2310 PER 1MG) IV PRN (02:56)
[2020-04-08] MEDS ORDERED: ONDANSETRON 4MG/2ML VIAL IV PRN (02:56)
[2020-04-08] MEDS ORDERED: EPIDURAL/PCA KEYS XX PRN (02:56)
[2020-04-08] MEDS ORDERED: EPIDURAL COMMENT XX SCH (02:56)
[2020-04-08] MEDS ORDERED: LACTATED RINGER'S 1000 ML IV PRN (02:56)
[2020-04-08] MEDS: LR 1,000 ML IV SCH (03:35)
[2020-04-08] MEDS ORDERED: FAMOTIDINE 20 MG TAB PO ONE (04:00)
[2020-04-08] MEDS ORDERED: OXYTOCIN DRIP 30 UNITS in IV 1 EA IV SCH (05:42)
--- NOTE | 2020-04-08 05:42 | DNPDOC ---
[facility] Delivery Note Delivery Note DATE OF DELIVERY: 04/11/20 at 0500 PREDELIVERY DIAGNOSIS: 39-2/7 weeks' gestation and labor. POST DELIVERY DIAGNOSIS: Delivered. PROCEDURE: Spontaneous vaginal delivery. BOX OFFICE AGENT: Domingo Abdalla CNM, JESÚS ANESTHESIA: epidural. ESTIMATED BLOOD LOSS: 200 mL. FINDINGS: 6 pounds 13 ounces; 3100 grams; female , Score 9/9, preeclampsia. DELIVERY SUMMARY: Patient is a 19-year-old female who is now a who presented to L&D for an IOL due to preeclampsia. She had 2 doses of Cytotec, a peralta bulb and IV Pitocin. Her peralta bulb fell out at the same time she spontaneously rupture to a large amount of clear fluid at 0142. She requested an epidural for pain management shortly after she ruptured. The patient progressed to fully dilated at 0444 and pushed to a living female in the ALONSO position with restitution to LOT. The anterior shoulder delivered with ease and the corpus immediately followed. The baby was placed on the maternal abdomen active and crying. The cord was clamped x2 after pulsation ceased and cut by the FOB. A 3- vessel cord was noted. The placenta delivered spontaneously and intact at 0504. Uterine hemostasis was achieved via rapid infusion of IV Pitocin and fundal mas weston. The vagina, perineum, and cervix was inspected and found to have a first degree perineal laceration that was repaired with a 3.[address]-1. MOM plans to breast feed. They are naming her Nuha. Both mom and baby are in stable condition. All counts of instruments and sponges are correct. DOMINGO ABDALLA CNM Apr 08, 2020 05:42
[2020-04-08] MEDS ORDERED: MEASLES,MUMPS,RUBELLA VACCINE INJ (MMR-II) (90707) SC SCH (05:45)
[2020-04-08] MEDS ORDERED: DOCUSATE SODIUM 100MG CAPSULE PO PRN (05:45)
[2020-04-08] MEDS ORDERED: RHOGAM 300 MCG (1500 IU) INJ (J2790) IM SCH (05:45)
[2020-04-08] MEDS ORDERED: ACETAMINOPHEN TAB 650MG DOSE (2X325MG) PO PRN (05:45)
[2020-04-08] MEDS ORDERED: METHYLERGONOVINE MALEATE 0.2 MG TAB PO PRN (05:45)
[2020-04-08] MEDS ORDERED: IBUPROFEN 600MG TAB PO PRN (05:45)
[2020-04-08] MEDS ORDERED: ANUSOL HC CREAM 30GM TOP PRN (05:45)
[2020-04-08] MEDS ORDERED: DIBUCAINE 1% OINTMENT 30GM TOP PRN (05:45)
[2020-04-08] MEDS: IBUPROFEN 800 MG TAB PO PRN ×2 (08:43→18:33)
[2020-04-08] MEDS: PRENATAL VITAMINS CHEWABLE TABLET PO SCH ×2 (08:43→08:44)
[2020-04-08] MEDS: ACETAMINOPHEN 500 MG TAB PO PRN (20:32)
[2020-04-09] MEDS: IBUPROFEN 800 MG TAB PO PRN ×2 (02:53→12:12)
[2020-04-09 06:00] VITALS: BP 101/59
--- NOTE | 2020-04-09 07:18 | IPNPDOC ---
Progress Note Date of Service: Apr 09, 2020 Day#: 1 Progress Note SUBJECT: Doing well without complaints. Ambulating, voiding and pain is well-c ontrolled. Reports minimal lochia. +breast feeding OBJECTIVE: VITAL SIGNS: Within normal limits, afebrile. Alert and oriented times three. Abdomen: Fundus firm at U-2. Soft, NTTP. Ext: neg calf tenderness. ASSESSMENT: day #1 status post normal spontaneous vaginal delivery. Recovering in stable condition. PLAN: 1. Continue routine care 2. Discharge plans for tomorrow VS, I&O, 24H, Fishbone Vital Signs/I&O Vital Signs Date Time Temp Pulse Resp B/P (MAP) Pulse Ox O2 Delivery O2 Flow Rate FiO2 04/09/20 06:00 97.7 82 20 101/59 (73) 97 Room Air ELEAZAR CANNON MD. Apr 09, 2020 07:18
[2020-04-09] MEDS: ACETAMINOPHEN 500 MG TAB PO PRN (07:21)
[2020-04-09] MEDS ORDERED: MOM 30ML SUSPENSION UDC PO PRN (07:45)
[2020-04-09] MEDS: PRENATAL VITAMINS CHEWABLE TABLET PO SCH (09:12)
== END 2020-04-09 19:00 | disposition home or self-care (01) | DRG 807 ==
LOC: M LDI 10:17 → M OBS 04-08 08:30
PROVIDERS: ADMIT Advanced Practice Midwife; ATTEND Advanced Practice Midwife
PROC: 3E033VJ Introduction of Other Hormone into Peripheral Vein, Percutaneous Approach (ICD-10-PCS; 2020-04-07)
PROC: 3E0P7VZ Introduction of Hormone into Female Reproductive, Via Natural or Artificial Opening (ICD-10-PCS; 2020-04-07)
PROC: 10E0XZZ Delivery of Products of Conception, External Approach (ICD-10-PCS; principal; 2020-04-08)
PROC: 0HQ9XZZ Repair Perineum Skin, External Approach (ICD-10-PCS; 2020-04-08)
DX: O14.94 Unspecified pre-eclampsia, complicating childbirth (principal); Z37.0 Single live birth; Z3A.39 39 weeks gestation of pregnancy; O24.410 Gestational diabetes mellitus in pregnancy, diet controlled; O70.0 First degree perineal laceration during delivery